=== PATIENT | female | born 1980 | race African-American/Black ===

== ENCOUNTER 2016-12-11 19:00 | Inpatient (IN) | payer OTHER ==
[~2016-12-11] VITALS: Ht 172.7 cm; Wt 131.5 kg
--- NOTE | ~2016-12-11 | DS ---
Unit #: [id number] #: [id number] Patient: DEYANIRA PERDOMO [id number] [facility] [address] [place] [address] [id number] MR#: [id number] NAME: DEYANIRA PERDOMO ROOM: P181 Age: 36 Sex: F Admission Date: 12/11/2016 : 1980 Discharge Date: 12/13/2016 Attending Physician: Chino Chan M.D. Primary Care Physician: Generic Doctor Not In System DISCHARGE SUMMARY REASON FOR ADMISSION The patient is a 36-year-old female, admitted with depressed mood and alcohol dependence. HOSPITAL COURSE The patient was admitted to the [facility] unit and placed on suicide precautions. Lexapro 20 mg daily was continued. Clonazepam was discontinued given the patient's heavy alcohol use. The patient was placed on routine detoxification protocol for alcohol. She participated to no significant degree within the therapeutic milieu. On 12/13/2016, the patient requested discharge from the hospital citing a need to provide care for her children. The risks of untreated alcohol withdrawal were discussed at length with the patient including the risk of seizures, delirium tremens, and and the patient was informed that she was exhibiting significant symptoms of alcohol withdrawal, including CIWA score 16. The patient however demanded discharge from the hospital and citing her need to provide care for her children accordingly against medical advice. Discharge was ordered. FINAL DIAGNOSES Alcohol use disorder; dysthymic disorder; obesity. DISPOSITION ON DISCHARGE The patient is discharged against medical advice. She is instructed to continue Lexapro 20 mg daily for depression. The patient had briefly been started on Wellbutrin SR, but given the circumstances of discharge. This medication will not be continued. PROGNOSIS The patient's prognosis is considered guarded. Dictated by... Chino Chan M.D. CB/jose TD: 12/13/2016 15:05 JOB #: [id number] Unit #: [id number] #: [id number] Patient: DEYANIRA PERDOMO DISCHARGE SUMMARY Page 1 of 1 X Chino Chan MD X DISCHARGE SUMMARY
--- NOTE | ~2016-12-11 | HP ---
Unit #: [id number] #: [id number] Patient: DEYANIRA PERDOMO [id number] [place] [address] [id number] MR#: [id number] NAME: DEYANIRA PERDOMO ROOM: P181 Age: 36 Sex: F Admission Date: 12/11/2016 : 1980 Attending Physician: Chino Chan M.D. Admitting Physician: Chino Chan M.D. Primary Care Physician: Generic Doctor Not In System HISTORY AND PHYSICAL HISTORY OF PRESENT ILLNESS Deyanira is a 36-year-old female admitted on 12/11/2016 to [facility] for suicidal ideation, depression and detox from alcohol. PAST MEDICAL HISTORY Obesity. PAST SURGICAL HISTORY None documented. ALLERGIES No known drug allergies. SOCIAL HISTORY Smokes 1/2 pack of cigarettes daily. Binge alcohol use and occasional use of marijuana and crack cocaine. FAMILY HISTORY Noncontributory. REVIEW OF SYSTEMS CONSTITUTIONAL: No fever or chills. HEENT: Denies any sore throat, ear pain or runny nose. CARDIOVASCULAR: Denies chest pain, irregular heart rhythm or palpitations. CHEST: Denies shortness of breath or cough. No hemoptysis. GASTROINTESTINAL: Denies nausea, vomiting, diarrhea or chronic constipation. ENDOCRINE: Denies history of increased thirst or urination. No recent significant weight loss or gain. GENITOURINARY: Denies dysuria, frequency, or hematuria. SKIN: Denies any rashes. HEMATOLOGIC: Denies history of increased bleeding or bruising. MUSCULOSKELETAL: Denies any hot, swollen joints. No generalized muscle pain. NEUROLOGIC: Denies problems with vision or speech. No frequent, severe headaches. No numbness, tingling or weakness in any extremities. Denies loss of bladder or bowel control. CURRENT MEDICATIONS Lexapro. PHYSICAL EXAMINATION GENERAL: Alert, oriented, in no acute distress. Unit #: [id number] #: [id number] Patient: DEYANIRA PERDOMO VITAL SIGNS: Blood pressure 128/87, heart rate 97, respirations 18, temperature 97.9. HEIGHT: 5 feet 8. WEIGHT: 290 pounds. SKIN: Warm and dry without rash or lesion. HEENT: Normocephalic. TMs not viewed. Oral and nasal passages clear. Conjunctivae clear. PERRLA. EOMs intact. NECK: Supple without lymphadenopathy or thyromegaly. HEART: Regular rate and rhythm without murmur. LUNGS: Clear. ABDOMEN: Soft, nontender, without masses or hepatosplenomegaly. : Not done. EXTREMITIES: No evidence of cyanosis, clubbing or edema. Moves all without focal deficit. NEUROLOGICAL: Grossly within normal limits. Cranial Nerves: II: Visual walton are intact. III, IV AND : Extraocular movements are intact. Pupils are equal, round and reactive to light. V: Facial sensation is grossly normal. VII: Facial movements and expression are normal. VIII: Auditory acuity grossly intact. IX, X: Uvula is midline. Phonation is normal. XI: Patient shrugs shoulders and turns head normally. XII: Tongue protrudes in the midline. Sensory and Motor Function: Sensory and motor sensation is grossly normal. Motor: moves all extremities well. Coordination: Gait is normal. Deep Tendon Reflexes: Intact. IMPRESSION 1. Psychiatric admission. 2. Obesity. RECOMMENDATIONS PSYCHIATRIC: Per psychiatrist. MEDICAL: No contraindication to participate in facility's activities. MEDICAL PROGNOSIS Good. MEDICAL CONDITION Stable. Dictated by... Vinny Dudley/tiff TD: 12/12/2016 22:52 JOB #: [id number] Unit #: [id number] #: [id number] Patient: DEYANIRA PERDOMO HISTORY AND PHYSICAL Page 1 of 1 X ELINA HEAD APRN X HISTORY AND PHYSICAL
--- NOTE | ~2016-12-11 | PA ---
Unit #: [id number] #: [id number] Patient: DEYANIRA PERDOMO [id number] [place] [address] [id number] MR#: [id number] NAME: DEYANIRA PERDOMO ROOM: P181 Age: 36 Sex: F Admission Date: 12/11/2016 : 1980 Date of Assessment: 12/12/2016 Attending Physician: Chino Chan M.D. Admitting Physician: Chino Chan M.D. Primary Care Physician: Generic Doctor Not In System PSYCHIATRIC ASSESSMENT IDENTIFYING INFORMATION The patient is a 36-year-old female admitted to the [facility] unit with complaints of increasing alcohol use and depressed mood. INFORMANT(S) Patient. RELIABILITY Fair. CHIEF COMPLAINT "I'm under a lot of stress." HISTORY OF PRESENT ILLNESS The patient is a 36-year-old female admitted after she had presented to this facility voicing positive suicidal ideation and depressed mood. The patient reports that she has been increasingly stressed and was reporting feelings of isolation. She also complains of feeling some hopelessness and helplessness and has had difficulty completing activities of daily living. The patient lives with her 2 children ages 17 and 5. She is unaware of the whereabouts of her parents. She admits to abuse of large amounts of alcohol as well as cocaine and marijuana. The patient reported positive suicidal ideation with plan to jump from a window or overdose on medications. She is followed at [facility] and reports a history of 1 previous psychiatric hospitalization at [facility]. She does not recall when this occurred. PAST PSYCHIATRIC HISTORY As above. FAMILY HISTORY The patient's mother was a heroin addict. SOCIAL HISTORY The patient lives with her 2 children. She is not presently employed. She completed the 9th grade. Her substance use history is as noted previously. She has no history of intravenous drug use. MEDICAL HISTORY The patient is morbidly obese. MEDICATION HISTORY Unit #: [id number] #: [id number] Patient: DEYANIRA PERDOMO 1. Lexapro. 2. Klonopin. ALLERGIES None. MENTAL STATUS EXAM At this time, reveals the patient to be a morbidly obese, somewhat disheveled female appearing her stated age. She is in no apparent physical distress at the time of the examination. She is awake, alert, oriented in all spheres. Her mood is mildly dysphoric. Her affect constricted. Speech is generally relevant and coherent. There are no gross deficits in memory or cognition noted. Intelligence is judged to be in the average range based on fund of knowledge. The patient is cooperative throughout the interview. She currently endorses positive suicidal ideation. She denies homicidal ideation. She denies any psychotic symptoms. Her judgement and insight appear to be intact. ASSETS AND LIABILITIES Patient's assets, motivation for change. Liabilities, lack of resources. ADMITTING DIAGNOSES 1. Major depressive disorder, recurrent, moderate. 2. Cocaine use disorder. 3. Alcohol use disorder. 4. Cannabis use disorder. 5. Morbid obesity. PSYCHIATRIC PLAN/TREATMENT GOALS The patient remains hospitalized for safety and stabilization. Routine detoxification protocol for alcohol has been initiated and Klonopin has been discontinued for obvious reasons. I will add Wellbutrin SR 150 mg q.a.m. to the patient's currently prescribed medications secondary to the patient's complaints of lack of motivation, lack of attendance to ADLs. The patient will participate in appropriate garza and milieu activities. DISCHARGE PLANNING Followup to take place through the auspices of community mental health resources. ESTIMATED LENGTH OF STAY Five to six days. Dictated by... Chino Chan M.D. GERBER/tiff TD: 12/12/2016 18:58 JOB #: [id number] Unit #: [id number] #: [id number] Patient: DEYANIRA PERDOMO PSYCHIATRIC ASSESSMENT Page 1 of 1 X Chino Chan MD X PSYCHIATRIC ASSESSMENT
[2016-12-12 09:57] LABS: URINE APPEARANCE CLOUDY; URINE BILIRUBIN NEG (NEG); URINE BLOOD NEG (NEG); URINE COLOR YELLOW; URINE GLUCOSE NORM (NORM); URINE KETONE 2+ (NEG); URINE LEUKOCYTE ESTERASE NEG (NEG); URINE NITRATE NEG (NEG); URINE PROTEIN NEG (NEG); URINE SPECIFIC GRAVITY 1.025 (1.003-1.035); URINE UROBILINOGEN NORM (NORM)
[2016-12-12 11:16] LABS: AMPHETAMINE NEG (NEG); BARBITURATES NEG (NEG); BENZODIAZEPINES NEG (NEG); COCAINE POS (NEG); MARIJUANA POS (NEG); OPIATES NEG (NEG); TRICYCLIC ANTIDEPRESSANTS NEG (NEG); U METHADONE NEG (NEG)
[2016-12-12 12:32] LABS: BASOPHIL# 0.1 X10e3 (0-0.3); BASOPHIL% 0.5 % (0-2.5); EOSINOPHIL# 0.6 X10e3 (0-0.7); EOSINOPHIL% 4.7 % (0.0-7.0); HEMATOCRIT 38.5 % (35.0-45.0); HEMOGLOBIN 12.5 gm/dL (12.0-16.0); LYMPHOCYTE# 2.4 X10e3 (1.0-3.5); LYMPHOCYTE% 18.6 % (17.0-45.0); MEAN CELL VOLUME 91.3 FL (83-96); MEAN CORPUSCULAR HEMOGLOBIN 29.7 PG (28-34); MEAN CORPUSCULAR HGB CONC 32.5 g/dL (30-36); MEAN PLATELET VOLUME 7.9 FL (6.5-11.5); MONOCYTE# 0.7 X10e3 (0-1.0); MONOCYTE% 5.6 % (3.0-12.0); NEUTROPHIL# 9.2 X10e3 (1.5-7.1); NEUTROPHIL% 70.6 % (40-75); PLATELET COUNT 285 X10e3 (140-420); RED BLOOD COUNT 4.22 X10e (3.90-5.30); WHITE BLOOD COUNT 13.1 X10e3 (4.0-10.5)
[2016-12-12 12:36] LABS: DIFF IND NO
[2016-12-12 12:56] LABS: ALBUMIN SERUM 3.4 g/dL (3.5-5.0); BILIRUBIN,TOTAL 0.6 mg/dL (0.2-2.0); BUN/CREATININE RATIO 14.54; CALCIUM SERUM 8.3 mg/dL (8.4-10.2); CREATININE SERUM 1.1 mg/dL (0.6-1.4); GLOM FILT RATE Estimated 75.9 mL/min (>60); POTASSIUM 3.8 mmol/L (3.5-5.1); PROTEIN TOTAL SERUM 6.3 g/dL (6.0-8.3)
== END 2016-12-13 13:08 | disposition home or self-care (01) | DRG 885 ==
LOC: P1E 22:21
PROVIDERS: Specialist
PROC: HZ2ZZZZ Detoxification Services for Substance Abuse Treatment (ICD-10-PCS; principal; 2016-12-11)
DX: F33.1 Major depressive disorder, recurrent, moderate (principal); F14.20 Cocaine dependence, uncomplicated; F10.20 Alcohol dependence, uncomplicated; F12.20 Cannabis dependence, uncomplicated; E66.01 Morbid (severe) obesity due to excess calories
CPT/HCPCS: 80053; 80307; 81003; 84703; 85025; 86592